=== PATIENT | male | born 1940 | race Caucasian/White ===

== ENCOUNTER → 2017-05-18 | Outpatient (CLI) | payer MEDICARE, BC ==
[~2017-05-18] MED LIST: DOXYCYCLINE100 M1 PO; FAMOTIDINE20 MG PO; FLAGYL500 MG PO; GLYCOLAX17 GM/PACK PO; HYCODAN 5MG. TAB5 MG PO; KONSYL6 GM/DOSE PO; LEVAQUIN500 MG PO; LISINOPRIL 20MG20 MG PO; NADOLOL20 MG PO; OSCAL 500MG. T500 MG PO; PERCOCET 5/3251 EACH PO; PRILOSEC20 M1 PO; PRIMIDONE250 MG PO; PROMETHAZINE HC25 M1 PO; PROMETHAZINE12.5 M1 PO; TOPIRAMATE 100100 M1 PO; XANAX 0.5MG TA0.5 MG PO; ZETIA10 MG PO; ZOCOR40 MG PO
--- NOTE | 2017-05-18 16:57 | RADIOLOGY REPORT PS360 ---
[id number] (PINKY)-3 VIEWS CLINICAL INDICATION: S/P LT FINGER INJURY WITH DEFORMAITY ORDERING PHYSICIAN: Black Nur MD PATIENT AGE: 77 years COMPARISON: None FINDINGS: No fracture or dislocation. Normal alignment. No lytic or blastic change. IMPRESSION: Negative left fifth digit
== END ==
LOC: RAD 11:26
DX: M20.002 Unspecified deformity of left finger(s) (principal)